=== PATIENT | female | born 1955 | race American Indian/Alaskan Native ===

== ENCOUNTER 2018-11-02 16:26 | Inpatient (IN) | payer MEDICARE ==
[2018-11-02 17:04] LABS: BASO # 0.1 K/uL (0.0-0.2); BASO % 1.4 % (0.0-2.0); EOS # 0.1 K/uL (0.0-0.7); EOS % 1.4 % (0.0-4.0); HEMOGLOBIN 11.4 g/dL (11.0-16.0); LYMPH % 23.4 % (20.0-40.0); MEAN CELL VOLUME 80.1 fL (81.0-99.0); MEAN CORPUSCULAR HEMOGLOBIN 25.5 pg (27.0-31.0); MEAN CORPUSCULAR HGB CONC 31.9 g/dL (33.0-37.0); MEAN PLATELET VOLUME 7.3 fL (7.2-11.7); MONO # 0.5 K/uL (0.0-0.8); MONO % 5.8 % (0.0-10.0); NEUT # 5.7 K/uL (1.8-7.0); NRBC % 0.1 % (0.0-2.0); RBC 4.48 Mil/uL (3.80-5.20); RED CELL DISTRIBUTION WIDTH 15.8 % (11.5-14.5); WHITE BLOOD COUNT 8.4 K/uL (4.8-10.8)
[2018-11-02 17:27] LABS: ALB/GLOB RATIO 1.5 (1.0-2.1); ALBUMIN 4.4 g/dL (3.5-5.0); ALT/SGPT 18 U/L (9-52); AST/SGOT 19 U/L (14-36); BLOOD UREA NITROGEN 11 mg/dL (7-17); CALCIUM 9.3 mg/dl (8.6-10.4); GFR NON-AFRICAN AMERICAN > 60
--- NOTE | 2018-11-02 17:28 | CT ---
Date of service: 11/02/2018 PROCEDURE: CT HEAD WITHOUT CONTRAST. HISTORY: dizziness COMPARISON: None available. TECHNIQUE: Axial computed tomography images were obtained through the head/brain without intravenous contrast. Radiation dose: Total exam DLP = 1132.61 mGy-cm. This CT exam was performed using one or more of the following dose reduction techniques: Automated exposure control, adjustment of the mA and/or kV according to patient size, and/or use of iterative reconstruction technique. FINDINGS: HEMORRHAGE: No intracranial hemorrhage. BRAIN: No mass effect or edema. Mild age related cerebral atrophy is appreciated without focal area of decreased density. No cortical effacement is seen. Posterior fossa is unremarkable. VENTRICLES: Unremarkable. No hydrocephalus. CALVARIUM: Unremarkable. PARANASAL SINUSES: Mild mucosal changes are seen in the ethmoid air cells without fluid level. MASTOID AIR CELLS: Unremarkable as visualized. No inflammatory changes. OTHER FINDINGS: No tonsillar ectopia is seen. No sellar masses are noted. Retro-orbital regions are unremarkable. Mild atherosclerotic changes of the intracranial internal carotid arteries are incidentally seen. IMPRESSION: No evidence of recent infarct or intracranial hemorrhage.
[2018-11-02 17:38] LABS: B-TYPE NATRIURETIC PEPTIDE 47.6 pg/mL (0-900)
--- NOTE | 2018-11-02 17:39 | C.PDOC ---
History Of Present Illness 63 y/o female brought in by ambulance with complaints of dizziness for the past 3 days. Also complains of left-sided chest pain, associated with SOB. Has hx of vertigo and cardiac disease. Recently moved here from [place]. Otherwise she denies any visual loss, severe headache, nausea, vomiting, diaphoresis, productive cough, fever, or chills. Time Seen by Provider: 11/02/18 16:41 Chief Complaint (Nursing): Chest Pain History Per: Patient History/Exam Limitations: no limitations Onset/Duration Of Symptoms: Days Current Symptoms Are (Timing): Still Present Past Medical History Reviewed: Historical Data, Nursing Documentation, Vital Signs Vital Signs: Last Vital Signs Temp 97.5 F L 11/02/18 16:34 Pulse 70 11/02/18 16:34 Resp 20 11/02/18 16:34 BP 175/83 H 11/02/18 16:34 Pulse Ox 100 11/02/18 16:34 - Medical History PMH: CHF, HTN Surgical History: Coronary Stent, Pacemaker Family History: States: No Known Family Hx - Social History Hx Alcohol Use: No Hx Substance Use: No - Immunization History Hx Tetanus Toxoid Vaccination: No Hx Influenza Vaccination: Yes (08/2018) Hx Pneumococcal Vaccination: No Review Of Systems Except As Marked, All Systems Reviewed And Found Negative. Constitutional: Negative for: Fever, Chills, Sweats Eyes: Negative for: Vision Change Cardiovascular: Positive for: Chest Pain Respiratory: Positive for: Shortness of Breath. Negative for: Cough, Sputum Gastrointestinal: Negative for: Nausea, Vomiting Neurological: Positive for: Dizziness. Negative for: Weakness, Numbness, Headache Physical Exam - Physical Exam Appears: Non-toxic, No Acute Distress Skin: Normal Color, Warm, Dry Head: Atraumatic, Normacephalic Eye(s): bilateral: Normal Inspection, PERRL, EOMI Ear(s): Bilateral: Normal (no TM erythema, (-) mastoid tenderness) Oral Mucosa: Moist Neck: Normal ROM Chest: Symmetrical, No Tenderness, No Ecchymosis Cardiovascular: Rhythm Regular, No Murmur Respiratory: Normal Breath Sounds, No Rales, No Rhonchi, No Wheezing Gastrointestinal/Abdominal: Soft, No Tenderness, No Distention Extremity: Bilateral: Atraumatic, Normal Color And Temperature Pulses: Left Radial: Normal, Right Radial: Normal Neurological/Psych: Oriented x3, Normal Speech ED Course And Treatment - Laboratory Results Result Diagrams: 11/02/18 17:00 11/02/18 17:00 ECG: Interpreted By Me, Viewed By Me ECG Rhythm: Sinus Rhythm Interpretation Of ECG: left axis deviation, 1st degree AV block, nonspecific T wave changes Rate From EC (bpm) O2 Sat by Pulse Oximetry: 100 (RA) Pulse Ox Interpretation: Normal - CT Scan/US CT Head Other Rad Studies (CT/US): Read By Radiologist, Radiology Report Reviewed CT/US Interpretation: Accession No. : [id number]. Patient Name / ID : ALLEY LLAMAS / [id number]. Exam Date : 11/02/2018 17:13:30 ( Approved ). Study Comment : Sex / Age : F / 63Y. Creator : Nasima Leyva MD. Dictator : Nasima Leyva MD. Principal Secretary : Desk Pens Assembler : Nasima Leyva MD. Approver2 : Report Date : 11/02/2018 17:24:49. My Comment : . Date of service: 11/02/2018. PROCEDURE: CT HEAD WITHOUT CONTRAST. HISTORY: dizziness. COMPARISON: None available. TECHNIQUE: Axial computed tomography images were obtained through the head/brain without intravenous contrast. Radiation dose: Total exam DLP = 1132.61 mGy-cm. This CT exam was performed using one or more of the following dose reduction techniques: Automated exposure control, adjustment of the mA and/or kV according to patient size, and/or use of iterative reconstruction technique. FINDINGS: HEMORRHAGE: No intracranial hemorrhage. BRAIN: No mass effect or edema. Mild age related cerebral atrophy is appreciated without focal area of decreased density. No cortical effacement is seen. Posterior fossa is unremarkable. VENTRICLES: Unremarkable. No hydrocephalus. CALVARIUM: Unremarkable. PARANASAL SINUSES: Mild mucosal changes are seen in the ethmoid air cells without fluid level. MASTOID AIR CELLS: Unremarkable as visualized. No inflammatory changes. OTHER FINDINGS: No tonsillar ectopia is seen. No sellar masses are noted. Retro-orbital regions are unremarkable. Mild atherosclerotic changes of the intracranial internal carotid arteries are incidentally seen. IMPRESSION: No evidence of recent infarct or intracranial hemorrhage. Medical Decision Making Medical Decision Making: Impression: Chest Pain, Dizziness, SOB Plan: --EKG --Blood work with cardiac enzymes --Chest x-ray --CT Head --Meclizine 25 mg PO --Sudafed 30 mg PO --Reassess case discussed with Dr. Starr and will admit to telemetry. Disposition Discussed With .: Joseph Starr Doctor Will See Patient In The: Hospital Counseled Patient/Family Regarding: Studies Performed, Diagnosis - Disposition Disposition: HOSPITALIZED Disposition Time: 18:11 Condition: FAIR - Clinical Impression Clinical Impression: Chest pain, Dizziness - Scribe Statement The provider has reviewed the documentation as recorded by the Diya Cannon Provider Attestation: All medical record entries made by the Diya were at my direction and personally dictated by me. I have reviewed the chart and agree that the record accurately reflects my personal performance of the history, physical exam, medical decision making, and the department course for this patient. I have also personally directed, reviewed, and agree with the discharge instructions and disposition.
[2018-11-02 17:54] LABS: URINE BILIRUBIN NEGATIVE (NEGATIVE); URINE BLOOD NEGATIVE (NEGATIVE); URINE CLARITY Clear (Clear); URINE COLOR Yellow (YELLOW); URINE GLUCOSE (UA) NORMAL (Normal); URINE LEUKOCYTE ESTERASE NEG Leu/uL (Negative); URINE PROTEIN NEGATIVE (NEGATIVE)
[2018-11-02] MEDS ORDERED: Aspirin 325 mg EC Tablets PO STA (18:10)
[2018-11-02] MEDS ORDERED: Aspirin 325 mg EC Tablets PO ONE (18:15)
--- NOTE | 2018-11-02 21:05 | RAD ---
Date of service: 11/02/2018 PROCEDURE: CHEST RADIOGRAPH, 1 VIEW HISTORY: SOB COMPARISON: None available. FINDINGS: LUNGS: Minor crowding is seen at the lung bases. PLEURA: No pneumothorax or pleural fluid seen. CARDIOVASCULAR: Heart is enlarged. Left pacemaker is identified. No significant calcification of the aorta is noted. OSSEOUS STRUCTURES: No significant abnormalities. VISUALIZED UPPER ABDOMEN: Normal. OTHER FINDINGS: None. IMPRESSION: No focal infiltrate. Mild cardiomegaly.
[2018-11-03] MEDS: Metoprolol Succinate 50 mg XL Tab PO SCH (09:11)
[2018-11-03] MEDS: Enoxaparin 40 mg Syringe SC SCH (09:12)
--- NOTE | 2018-11-03 13:12 | VASCLAB ---
Date of service: 11/03/2018 PROCEDURE: Carotid Duplex Exam-Limited [id number] HISTORY: Dizziness COMPARISON: None available. TECHNIQUE: Grayscale and duplex Doppler evaluation of the cervical carotid and vertebral arteries were performed. The common carotid, carotid bifurcations and cervical Internal Carotid Artery (ICA) and proximal External Carotid Artery (ECA) were evaluated. The vertebral arteries were evaluated for gross patency and flow direction. Report prepared by YANNI Lockett FINDINGS: RIGHT CAROTID ARTERIES: 1. Common Carotid Artery: No significant focal plaque formation of the right common carotid artery. Maximum Peak Systolic velocity: 72 cm/sec: End-diastolic velocity 12 cm/sec. 2. Carotid Bifurcation: plaque formation. Maximum Peak Systolic velocity: 33 cm/sec: End-diastolic velocity 12 cm/sec. 3. Internal Carotid Artery: Plaque description: 3.1. Proximal Segment: Peak systolic velocity 32 cm/sec: End-diastolic velocity 12 cm/sec - % stenosis 0-15% 3.2. Middle Segment: Peak systolic velocity 39 cm/sec: End-diastolic velocity 15 cm/sec - % stenosis 0-15% 3.3. Distal Segment: Peak systolic velocity 69 cm/sec: End-diastolic velocity 25 cm/sec - % stenosis 0-15% 4. External Carotid Artery: No significant focal plaque formation. Peak systolic velocity 68 cm/sec 5. ICA/CCA Ratio: 1.3 LEFT CAROTID ARTERIES: NOT EXAMINED. VERTEBRAL ARTERIES: 1. Right Vertebral Artery: The right vertebral artery flow direction is antegrade. 2. Left Vertebral Artery: OTHER FINDINGS: None As per patient's request the left side was not examined. Irish Arzate was made aware at 10:04 a.m. IMPRESSION: RIGHT: Duplex scan does not suggest hemodynamically significant stenosis of the right extracranial carotid arteries. LEFT: N/A
--- NOTE | 2018-11-03 20:04 | CARD ---
APPROVED REPORT Date of service: 11/02/2018 EKG Measurement Heart [id number] VT 210P48 [id number] <Conclusion> Sinus rhythm with 1st degree AV block Left axis deviation Abnormal ECG
--- NOTE | 2018-11-03 22:19 | CP.PCM.CON ---
History of Present Illness - History of Present Illness History of Present Illness: 63 y/o female brought in by ambulance with complaints of dizziness for the past 3 days. Also complains of left-sided chest pain, associated with SOB. Has hx of vertigo and cardiac disease. Recently moved here from [place]. Otherwise she denies any visual loss, severe headache, nausea, vomiting, diaphoresis, productive cough, fever, or chills. Chief Complaint (Nursing): Chest Pain History Per: Patient History/Exam Limitations: no limitations Onset/Duration Of Symptoms: Days Current Symptoms Are (Timing): Still Present Past Medical History Reviewed: Historical Data, Nursing Documentation, Vital Signs Vital Signs: Last Vital Signs Temp 97.5 F L 11/02/18 16:34 Pulse 70 11/02/18 16:34 Resp 20 11/02/18 16:34 BP 175/83 H 11/02/18 16:34 Pulse Ox 100 11/02/18 16:34 - Medical History PMH: CHF, HTN Surgical History: Coronary Stent, Pacemaker Family History: States: No Known Family Hx - Social History Hx Alcohol Use: No Hx Substance Use: No - Immunization History Hx Tetanus Toxoid Vaccination: No Hx Influenza Vaccination: Yes (08/2018) Hx Pneumococcal Vaccination: No Review Of Systems Except As Marked, All Systems Reviewed And Found Negative. Constitutional: Negative for: Fever, Chills, Sweats Eyes: Negative for: Vision Change Cardiovascular: Positive for: Chest Pain Respiratory: Positive for: Shortness of Breath. Negative for: Cough, Sputum Gastrointestinal: Negative for: Nausea, Vomiting Neurological: Positive for: Dizziness. Negative for: Weakness, Numbness, Headache Physical Exam - Physical Exam Appears: Non-toxic, No Acute Distress Skin: Normal Color, Warm, Dry Head: Atraumatic, Normacephalic Eye(s): bilateral: Normal Inspection, PERRL, EOMI Ear(s): Bilateral: Normal (no TM erythema, (-) mastoid tenderness) Oral Mucosa: Moist Neck: Normal ROM Chest: Symmetrical, No Tenderness, No Ecchymosis Cardiovascular: Rhythm Regular, No Murmur Respiratory: Normal Breath Sounds, No Rales, No Rhonchi, No Wheezing Gastrointestinal/Abdominal: Soft, No Tenderness, No Distention Extremity: Bilateral: Atraumatic, Normal Color And Temperature Pulses: Left Radial: Normal, Right Radial: Normal Neurological/Psych: Oriented x3, Normal Speech Past Patient History - Past Medical History & Family History Past Medical History?: Yes - Past Social History Smoking Status: Never Smoked - CARDIAC Hx Congestive Heart Failure: Yes Hx Hypertension: Yes Hx Pacemaker: Yes - MUSCULOSKELETAL/RHEUMATOLOGICAL Hx Falls: No - PSYCHIATRIC Hx Substance Use: No - SURGICAL HISTORY Hx Coronary Stent: Yes - ANESTHESIA Hx Anesthesia: Yes Hx Anesthesia Reactions: No Meds Allergies/Adverse Reactions: Allergies Allergy/AdvReac Type Severity Reaction Status Date / Time No Known Allergies Allergy Verified 11/02/18 16:39 - Medications Medications: Current Medications Acetaminophen (Tylenol 325mg Tab) 650 mg PO Q6 PRN PRN Reason: Headache Last Admin: 11/03/18 19:07 Dose: 650 mg Aspirin (Ecotrin) 81 mg PO DAILY [facility] Last Admin: 11/03/18 09:11 Dose: 81 mg Enoxaparin Sodium (Lovenox) 40 mg SC DAILY [facility] Last Admin: 11/03/18 09:12 Dose: 40 mg Gabapentin (Neurontin) 100 mg PO TID [facility] Last Admin: 11/03/18 17:01 Dose: 100 mg Lisinopril (Zestril) 5 mg PO DAILY [facility] Last Admin: 11/03/18 09:11 Dose: 5 mg Meclizine HCl (Antivert) 25 mg PO Q8 PRN PRN Reason: Dizziness Last Admin: 11/03/18 17:01 Dose: 25 mg Metoprolol Succinate (Toprol Xl) 50 mg PO DAILY [facility] Last Admin: 11/03/18 09:11 Dose: 50 mg Rosuvastatin Calcium (Crestor) 10 mg PO HS [facility] Last Admin: 11/03/18 21:46 Dose: 10 mg Results - Vital Signs Recent Vital Signs: Last Vital Signs Temp 97.8 F 11/03/18 15:43 Pulse 60 11/03/18 20:50 Resp 20 11/03/18 15:43 BP 137/75 11/03/18 15:43 Pulse Ox 98 11/03/18 16:31 - Labs Result Diagrams: 11/02/18 17:00 11/02/18 17:00 Labs: Laboratory Results - last 24 hr 11/03/18 11/03/18 11/03/18 00:32 06:43 14:28 ESR 17 Troponin I < 0.0120 < 0.0120 C-Reactive Protein 11/03/18 14:28 ESR Troponin I C-Reactive Protein 13.20 H Assessment & Plan - Assessment and Plan (Free Text) Assessment: 63 F with hx of CAD s/p Coronary stents and PPM Will check ECHO and stress test in am
--- NOTE | 2018-11-03 23:51 | CP.PCM.HP ---
Past Patient History - Past Medical History & Family History Past Medical History?: Yes - Past Social History Smoking Status: Never Smoked - CARDIAC Hx Congestive Heart Failure: Yes Hx Hypertension: Yes Hx Pacemaker: Yes - MUSCULOSKELETAL/RHEUMATOLOGICAL Hx Falls: No - PSYCHIATRIC Hx Substance Use: No - SURGICAL HISTORY Hx Coronary Stent: Yes - ANESTHESIA Hx Anesthesia: Yes Hx Anesthesia Reactions: No Meds Allergies/Adverse Reactions: Allergies Allergy/AdvReac Type Severity Reaction Status Date / Time No Known Allergies Allergy Verified 11/02/18 16:39 Results - Vital Signs Recent Vital Signs: Last Vital Signs Temp 97.8 F 11/03/18 15:43 Pulse 60 11/03/18 20:50 Resp 20 11/03/18 15:43 BP 137/75 11/03/18 15:43 Pulse Ox 98 11/03/18 16:31 - Labs Result Diagrams: 11/02/18 17:00 11/02/18 17:00 Labs: Laboratory Results - last 24 hr 11/03/18 11/03/18 11/03/18 00:32 06:43 14:28 ESR 17 Troponin I < 0.0120 < 0.0120 C-Reactive Protein 11/03/18 14:28 ESR Troponin I C-Reactive Protein 13.20 H
--- NOTE | 2018-11-04 07:11 | CP.PCM.CON ---
History of Present Illness - History of Present Illness History of Present Illness: CONSULTATION DICTATED NECK PAIN WITH NUMBNESS OF HER LEFT FACE CERVICAL SPINAL PATHOLOGY - HNP COMPLETE CAROTID STUDY AGREE WITH CARDIAC WORK UP Past Patient History - Past Medical History & Family History Past Medical History?: Yes - Past Social History Smoking Status: Never Smoked - CARDIAC Hx Congestive Heart Failure: Yes Hx Hypertension: Yes Hx Pacemaker: Yes - MUSCULOSKELETAL/RHEUMATOLOGICAL Hx Falls: No - PSYCHIATRIC Hx Substance Use: No - SURGICAL HISTORY Hx Coronary Stent: Yes - ANESTHESIA Hx Anesthesia: Yes Hx Anesthesia Reactions: No Meds Allergies/Adverse Reactions: Allergies Allergy/AdvReac Type Severity Reaction Status Date / Time No Known Allergies Allergy Verified 11/02/18 16:39 - Medications Medications: Current Medications Acetaminophen (Tylenol 325mg Tab) 650 mg PO Q6 PRN PRN Reason: Headache Last Admin: 11/03/18 19:07 Dose: 650 mg Aspirin (Ecotrin) 81 mg PO DAILY [facility] Last Admin: 11/03/18 09:11 Dose: 81 mg Enoxaparin Sodium (Lovenox) 40 mg SC DAILY [facility] Last Admin: 11/03/18 09:12 Dose: 40 mg Gabapentin (Neurontin) 100 mg PO TID [facility] Last Admin: 11/03/18 17:01 Dose: 100 mg Lisinopril (Zestril) 5 mg PO DAILY [facility] Last Admin: 11/03/18 09:11 Dose: 5 mg Meclizine HCl (Antivert) 25 mg PO Q8 PRN PRN Reason: Dizziness Last Admin: 11/03/18 17:01 Dose: 25 mg Metoprolol Succinate (Toprol Xl) 50 mg PO DAILY [facility] Last Admin: 11/03/18 09:11 Dose: 50 mg Rosuvastatin Calcium (Crestor) 10 mg PO HS [facility] Last Admin: 11/03/18 21:46 Dose: 10 mg Results - Vital Signs Recent Vital Signs: Last Vital Signs Temp 97.5 F L 11/04/18 00:00 Pulse 60 11/04/18 01:17 Resp 20 11/04/18 00:00 BP 140/85 11/04/18 01:17 Pulse Ox 97 11/04/18 00:00 - Labs Result Diagrams: 11/02/18 17:00 11/02/18 17:00 Labs: Laboratory Results - last 24 hr 11/03/18 11/03/18 11/03/18 06:43 14:28 14:28 ESR 17 Troponin I < 0.0120 C-Reactive Protein 13.20 H
[2018-11-04 08:33] LABS: FREE T4 0.87 ng/dL (0.78-2.19)
--- NOTE | 2018-11-04 12:30 | CARD ---
APPROVED REPORT Date of service: 11/03/2018 EKG Measurement Heart [id number] NM 244P61 [id number] <Conclusion> Atrial-paced rhythm with prolonged AV conduction Left anterior fascicular block Abnormal ECG
--- NOTE | 2018-11-04 12:31 | CARD ---
APPROVED REPORT Date of service: 11/03/2018 EKG Measurement Heart [id number] OR 240P68 [id number] <Conclusion> Atrial-paced rhythm with prolonged AV conduction Pulmonary disease pattern Left anterior fascicular block ST elevation, consider lateral injury or acute infarct ACUTE SD / STEMI Abnormal ECG
--- NOTE | 2018-11-04 12:32 | CARD ---
APPROVED REPORT Date of service: 11/03/2018 EKG Measurement Heart [id number] [place] 216P40 [id number] <Conclusion> Atrial-paced rhythm with prolonged AV conduction Pulmonary disease pattern Left anterior fascicular block Abnormal ECG
[2018-11-04] MEDS: Metoprolol Succinate 50 mg XL Tab PO SCH (12:48)
[2018-11-04] MEDS: Enoxaparin 40 mg Syringe SC SCH (12:48)
--- NOTE | 2018-11-04 12:50 | CON ---
DATE: 11/04/2018 TIME OF EVALUATION: 6:55 a.m. LOCATION: Room #563, bed A. ATTENDING PHYSICIAN: Joseph Starr MD NEUROLOGICAL PROBLEM: Dizziness and headache. CHIEF COMPLAINT: The patient was brought in to [facility] with history of dizziness for the last three days, which was more intense than her previous problem. From neurological point of view, I was called in to evaluate her for further management. HISTORY OF PRESENT ILLNESS: Meryl Elizabeth is a 63-year-old right-handed female who has just recently moved to [place] from [place] with the health history of cardiac arrest status post pacemaker placement in 2014 with preceding stroke and had a followup TIAs in the past, being followed by neurologist in [place]. At present, she is complaining of recurrent dizziness which is more intense than before for the last three days, however, the dizziness has all gone at this time, but she has some pain in the neck region on her left side which traveled into her left arm and radiating up to her face with facial numbness. These symptoms are not associating with visual or bulbar dysfunction. At home she used to walk with a cane and at times with a walker because of her previous stroke. PAST MEDICAL HISTORY Coronary stent and pacemaker placed in 2015, history of hypertension and CHF. No history of smoking or alcohol use. ALLERGIES: NONE. REVIEW OF SYSTEMS: A 12-point system being reviewed. From neuro, neck pain and dizziness. MEDICATIONS: Antibiotic, Crestor, Ecotrin, Neurontin, Toprol, Tylenol and lisinopril. PHYSICAL EXAMINATION: VITAL SIGNS: Blood pressure 104/85, mean artery pressure of 103, respiratory rate 18, temperature 97.5 with a pulse rate 60, normal sinus. NECK: Supple. No carotid bruits. HEART: Sounds regular. CHEST: Fair air entry. EXTREMITIES: No edema in legs. NEUROLOGIC: Mental status examination, she is awake, alert and oriented to person, place and time. Speech is clear. Naming, repetition, fluency, comprehension all within normal. Cranial nerve examination, visual field intact. Pupils reactive. Extraocular movement normal. No nystagmus. No facial sensory deficit. No facial asymmetry. Hearing is normal. Tongue is midline. Good gag. Motor examination, outstretched hand with eyes closed, no drift noted. Power is symmetric on either side. Deep tendon reflexes biceps, brachialis, triceps 1+ both knees are absent. Both ankles are absent. Plantars are downgoing. Sensory examination grossly intact; however, she had a decreased pinprick and pain on her right side to compare with her left side. Coordination, [id number] test is intact. Gait is deferred at this time. Examination of the spine, no tenderness. There is some discomfort over left cervical paraspinal muscle groups and trapezius. Some limited exam and range of movement is limited on her left side proximal muscle groups to compare with the right side. CONCLUSION: Ms. Meryl Elizabeth is, as per neurological examination, presenting with recurrent dizziness superimposed with some left cervical pain with facial numbness, all related to cervical pathology. The current examination does not show any central nervous system ischemic process. 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 DIAGNOSTIC DATA: CT of the head reviewed, no acute pathology, stroke process or bleed. EKG, sinus. LABORATORY DATA: Blood workup, WBC 8.4, hemoglobin 11.4, hematocrit 35.9, platelet 359. Sodium 139, potassium 3.6, chloride 111, bicarbonate 29, BUN 11, creatinine 0.6, GFR more than 60, ____ 17, CRP 13.20, BNP 47.6. Urine shows 2+ urobilinogen. RECOMMENDATION: 1. Continue stroke prophylaxis as she has been getting. 2. Gabapentin dose can be increased if her symptoms are persistent. 3. Complete the carotid Doppler studies which is missing on her left side, study was incomplete. 4. CAT scan of the cervical spine to rule out any spinal pathology that could explain her problem. 5. While she is in the hospital, the patient should get active physical therapy to improve her gait. The above has been discussed with her. I agree with cardiology workup. The patient will be followed closely with you. Juancarlos Burris MD
--- NOTE | 2018-11-04 13:14 | CT ---
Date of service: 11/04/2018 PROCEDURE: CT Cervical Spine without contrast HISTORY: cervical radiculopathy COMPARISON: None available. TECHNIQUE: Axial computed tomography images were obtained of the cervical spine without the use of intravenous contrast. Coronal and sagittal reformatted images were created and reviewed. Radiation dose: Total exam DLP = 485.97 mGy-cm. This CT exam was performed using one or more of the following dose reduction techniques: Automated exposure control, adjustment of the mA and/or kV according to patient size, and/or use of iterative reconstruction technique. FINDINGS: VERTEBRAE: There is normal alignment of the cervical vertebral bodies. There is normal cervical lordosis. There is no acute fracture or traumatic anterior listhesis. There is mild diffuse bone demineralization. DISCS/SPINAL CANAL/NEURAL FORAMINA: Evaluation of the discs and cord is limited on noncontrast CT examination there is multilevel degenerative disc disease due to combination of disc osteophyte complexes, uncovertebral joint hypertrophy and multilevel facet arthropathy, worse at C5-6 with moderate neural foraminal narrowing. No spinal canal stenosis. PARASPINAL SOFT TISSUES: No prevertebral soft tissue thickening. The paraspinous soft tissues are normal. OTHER FINDINGS: Mildly enlarged multinodular thyroid gland. IMPRESSION: No acute fracture or traumatic anterior listhesis. Limited examination for evaluation of discs and spinal cord. Allowing for this, mild multilevel degenerative disc disease, worse at C5-6 with moderate neural foraminal narrowing. No spinal canal stenosis.
--- NOTE | 2018-11-04 13:22 | VASCLAB ---
Date of service: 11/04/2018 PROCEDURE: Carotid Duplex Exam- Limited [id number] HISTORY: Dizziness COMPARISON: None available. TECHNIQUE: Grayscale and duplex Doppler evaluation of the cervical carotid and vertebral arteries were performed. The common carotid, carotid bifurcations and cervical Internal Carotid Artery (ICA) and proximal External Carotid Artery (ECA) were evaluated. The vertebral arteries were evaluated for gross patency and flow direction. Report prepared by YANNI Lockett FINDINGS: RIGHT CAROTID ARTERIES: NOT EXAMINED LEFT CAROTID ARTERIES: * Common Carotid Artery: No significant focal plaque formation of the left common carotid artery. Maximum Peak Systolic velocity: 84 cm/sec: End-diastolic velocity 16 cm/sec. * Carotid Bifurcation: plaque formation. Maximum Peak Systolic velocity: 31 cm/sec: End-diastolic velocity 10 cm/sec. * Internal Carotid Artery: Plaque description: o Proximal Segment: Peak systolic velocity 40 cm/sec: End-diastolic velocity 17 cm/sec - % stenosis 0-15% o Middle Segment: Peak systolic velocity 48 cm/sec: End-diastolic velocity 22 cm/sec - % stenosis 0-15% o Distal Segment: Peak systolic velocity 61 cm/sec: End-diastolic velocity 27 cm/sec - % stenosis 0-15% * External Carotid Artery: No significant focal plaque formation. Peak systolic velocity 50 cm/sec * ICA/CCA Ratio: 1.2 VERTEBRAL ARTERIES: * Left Vertebral Artery: The left vertebral artery flow direction is antegrade. OTHER FINDINGS: None. IMPRESSION: LEFT: Duplex scan does not suggest hemodynamically significant stenosis of the left extracranial carotid arteries.
--- NOTE | 2018-11-04 14:02 | CARD ---
APPROVED REPORT Date of service: 11/04/2018 Protocol: PHARMACOLOGICAL STRESS Test Type: LEXISCAN Test Indications: CHEST PAIN, DIZZINESS Medications: LIST SCAN Medical History: CHEST PAIN,DIZZINESS Target HR: 157 bpm Resting ECG: nsr Resting Heart Rate: 60 bpm Resting Blood Pressure: 154/96mmHg submaximum (85%): 133 bpm TEST SUMMARY [id number]/96.0. INFUSIONDOSE 100:300.00.01.060/.0. [id number]:260.00..[id number]/80.0. PROCEDURE Pharmacologic stress testing was performed using 0.4mg per 5ml of regadenoson given intravenously over 7-10 seconds. POST EXERCISE Reason for Termination: Protocol Completed Target HR: No Max HR: 60 bpm 56% of Maximum Predicted HR: 157 bpm Exercise duration: 00:30 min:sec, 0 Stage Exercise capacity: 1.0METs Max Blood Pressure: 160/80mmHg Blood Pressure response to exercise: normal resting BP - appropriate response Heart Rate response to exercise: appropriate Chest Pain: No, none Angina index: 0 Arrhythmia: No, none ST Change: No, none Deviation: 0 mm INTERPRETATION Stress EKG Conclusion: completed lexiscan protocol.tolerated procedure well.normal hr & bp response.no ekg changes.nuclear to follow. EXAM: Myocardial Perfusion REST/STRESS Imaging Protocol The imaging protocol used to acquire images was Rest Tc-99m/stress Tc-99m 1 day Rest Spect myocardial perfusion imaging was performed in supine position 45 minutes following the injection of 13.1 mCi of Tc-99 Myoview. Gated Stress Spect was performed 45 minutes after intravenous 33.0 mCi Tc-99 Myoview injection. The images were gated to evaluate regional wall motion and calculate ventricular ejection fraction.Images were reconstructed using backfilter projection method in short horizontal and verticle long axis. Spect slices were generated. RESTING DATA EDV85.34aiTN7.50L/min ESV28.00mlMyocardial Hwme810.00g Av. Heart Rate63.00bpm EF67.00% STRESS DATA EDV80.91wwRS4.60L/min ESV20.00mlMyocardial Hstk070.00g EF75.00% Regional WT score at stress:0.00 Regional WM score at stress:0.00 Summed WT score at stress:7.00 Av. Heart Rate60.00bpmSummed WM score at stress:0.00 LV Perf. Quant 17 Seg. SSS5.00 17 Seg. SRS3.00 17 Seg. SDS2.00 Stress Defect Extent (% LAD)3.10Rest Defect Extent (% LAD)0.00Rev. Defect Extent (% LAD)2.50 Stress Defect Extent (% LCX)48.80Rest Defect Extent (% LCX)36.30Rev. Defect Extent (% LCX)10.00 Stress Defect Extent (% RCA)0.00Rest Defect Extent (% RCA)0.00Rev. Defect Extent (% RCA)0.00 Stress Defect Extent (% YOLIE)15.40Rest Defect Extent (% YOLIE)7.40Rev. Defect Extent (% YOLIE)5.40 Other Information Quality:Good IMPRESSION Abnormal Myocardial Perfusion exercise stress study Left Ventricle LV Function:Left ventricle systolic function is normal. The Ejection Fraction is >55%. Conclusion 1. Moderate sized stress induced reversible perfusion defect suggestive of stress induced ischemia. Abnormal stress test.
--- NOTE | 2018-11-04 14:47 | CARD ---
APPROVED REPORT Date of service: 11/04/2018 EXAM: Two-dimensional and M-mode echocardiogram with Doppler and color Doppler. Other Information Quality : GoodRhythm : INDICATION Dizziness and Vertigo Chest Pain Congestive Heart Failure Surgery/Intervention Pacemaker: RISK FACTORS Hypertension 2D DIMENSIONS IVSd1.3 (0.7-1.1cm)LVDd4.6 (3.9-5.9cm) PWd1.2 (0.7-1.1cm)LA Dwwpkb47 (18-58mL) LVDs2.5 (2.5-4.0cm)FS (%) 44.8 % LVEF (%)76.2 (>50%)LVEF (Goldsmith's)69 % IVC0.00 cm M-Mode DIMENSIONS RVDd1.37 (2.1-3.2cm)Left Atrium (MM)4.25 (2.5-4.0cm) IVSd2.50 (0.7-1.1cm)Aortic Root2.96 (2.2-3.7cm) LVDd5.46 (4.0-5.6cm)Aortic Cusp Exc.1.96 (1.5-2.0cm) PWd1.05 (0.7-1.1cm)FS (%) 58 % LVDs2.29 (2.0-3.8cm)LVEF (%)75 (>50%) Mitral Valve MV E Vgkrafzr55.7cm/sMV A Tfkijhmp55.7cm/sE/A ratio0.5 AYNA730.70 cm/s TDI Lateral E' Peak V4.29cm/sMedial E' Peak V3.71cm/sE/Lateral E'12.3 E/Medial E'14.2 Tricuspid Valve TR Peak Sxxupkeu009us/sTR Peak Gr.72hxKbMCTJ92xoIv LEFT VENTRICLE The left ventricle is normal size. There is normal left ventricular wall thickness. The left ventricular function is normal. The left ventricular ejection fraction is within the normal range. No regional wall motion abnormalities noted. Transmitral Doppler flow pattern is Grade I-abnormal relaxation pattern. Left ventricular filling pressure is elevated No left ventricle thrombus noted on this study. There is no ventricular septal defect visualized. There is no left ventricular aneurysm. There is no mass noted in the left ventricle. RIGHT VENTRICLE The right ventricle is normal size. There is normal right ventricular wall thickness. The right ventricular systolic function is normal. ATRIA The left atrium is mildly dilated. Left atrial volume is mildly elevated The right atrium size is normal. The interatrial septum is intact with no evidence for an atrial septal defect. AORTIC VALVE The aortic valve is normal in structure and function. No aortic regurgitation is present. There is no aortic valvular stenosis. There is no aortic valvular vegetation. MITRAL VALVE The mitral valve is normal in structure and function. There is no evidence of mitral valve prolapse. There is no mitral valve stenosis. Mitral valve regurgitant volume is 27 mL, effective regurgitant orifice area is 0.1 cm consistent with mild mitral regurg TRICUSPID VALVE The tricuspid valve is normal in structure and function. There is mild tricuspid regurgitation. Right ventricular systolic pressure is estimated at 30-40 mmHg. There is no tricuspid valve prolapse or vegetation. There is no tricuspid valve stenosis. PULMONIC VALVE The pulmonary valve is normal in structure and function. There is no pulmonic valvular regurgitation. There is no pulmonic valvular stenosis. GREAT VESSELS The aortic root is normal in size. The ascending aorta is normal in size. The pulmonary artery is normal. The IVC is normal in size and collapses >50% with inspiration. PERICARDIAL EFFUSION The pericardium appears normal. There is no pleural effusion. <Conclusion> The left ventricular function is normal. The left ventricular ejection fraction is within the normal range. No regional wall motion abnormalities noted. Transmitral Doppler flow pattern is Grade I-abnormal relaxation pattern. Left ventricular filling pressure is elevated The left atrium is mildly dilated. Left atrial volume is mildly elevated Mitral valve regurgitant volume is 27 mL, effective regurgitant orifice area is 0.1 cm consistent with mild mitral regurg
[2018-11-04 15:54] VITALS: RESP 20
--- NOTE | 2018-11-04 22:11 | CP.PCM.PN ---
Subjective - Date & Time of Evaluation Date of Evaluation: 11/04/18 Time of Evaluation: 17:20 - Subjective Subjective: Patient with abnormal stress test For Cardiac cath tomorrow Review Of Systems Except As Marked, All Systems Reviewed And Found Negative. Constitutional: Negative for: Fever, Chills, Sweats Eyes: Negative for: Vision Change Cardiovascular: Positive for: Chest Pain Respiratory: Positive for: Shortness of Breath. Negative for: Cough, Sputum Gastrointestinal: Negative for: Nausea, Vomiting Neurological: Positive for: Dizziness. Negative for: Weakness, Numbness, Headache Physical Exam - Physical Exam Appears: Non-toxic, No Acute Distress Skin: Normal Color, Warm, Dry Head: Atraumatic, Normacephalic Eye(s): bilateral: Normal Inspection, PERRL, EOMI Ear(s): Bilateral: Normal (no TM erythema, (-) mastoid tenderness) Oral Mucosa: Moist Neck: Normal ROM Chest: Symmetrical, No Tenderness, No Ecchymosis Cardiovascular: Rhythm Regular, No Murmur Respiratory: Normal Breath Sounds, No Rales, No Rhonchi, No Wheezing Gastrointestinal/Abdominal: Soft, No Tenderness, No Distention Extremity: Bilateral: Atraumatic, Normal Color And Temperature Pulses: Left Radial: Normal, Right Radial: Normal Neurological/Psych: Oriented x3, Normal Speech Assessment & Plan - Assessment and Plan (Free Text) Assessment: 63 F with hx of CAD s/p Coronary stents and PPM Abnormal stress test Patient scheduled for cath tomorrow [employer] Jennifer at bedside Patient agreed for the procedure Objective - Vital Signs/Intake and Output Vital Signs (last 24 hours): Temp Pulse Resp BP Pulse Ox 97.9 F 62 20 112/76 97 11/04/18 15:53 11/04/18 19:43 11/04/18 15:53 11/04/18 15:53 11/04/18 16:10 Intake and Output: 11/04/18 11/05/18 18:59 06:59 Intake Total 250 Balance 250 - Medications Medications: Current Medications Acetaminophen (Tylenol 325mg Tab) 650 mg PO Q6 PRN PRN Reason: Headache Last Admin: 11/03/18 19:07 Dose: 650 mg Aspirin (Ecotrin) 81 mg PO DAILY [facility] Last Admin: 11/04/18 12:48 Dose: 81 mg Enoxaparin Sodium (Lovenox) 40 mg SC DAILY [facility] Last Admin: 11/04/18 12:48 Dose: 40 mg Gabapentin (Neurontin) 100 mg PO TID [facility] Last Admin: 11/04/18 17:00 Dose: 100 mg Lisinopril (Zestril) 5 mg PO DAILY [facility] Last Admin: 11/04/18 12:48 Dose: 5 mg Meclizine HCl (Antivert) 25 mg PO Q8 PRN PRN Reason: Dizziness Last Admin: 11/04/18 12:52 Dose: 25 mg Metoprolol Succinate (Toprol Xl) 50 mg PO DAILY [facility] Last Admin: 11/04/18 12:48 Dose: 50 mg Rosuvastatin Calcium (Crestor) 10 mg PO HS [facility] Last Admin: 11/04/18 21:05 Dose: 10 mg - Labs Labs: 11/02/18 17:00 11/02/18 17:00
--- NOTE | 2018-11-05 04:34 | PN ---
DATE: 11/04/2018 SUBJECTIVE: Cardiac enzymes x3 are normal. She still has on and off chest pain. She has been seen by Cardiology, and she is for cardiac catheterization in a.m. No fever. No chills. PHYSICAL EXAMINATION: VITAL SIGNS: Blood pressure 137/84, pulse 62, respiratory rate 18, and temperature 97. LUNGS: Clear. CARDIOVASCULAR SYSTEM: S1 and S2, regular. ABDOMEN: Soft. ASSESSMENT: 1. Chest pain, rule out coronary artery disease. The patient's myocardial scan is positive. 2. Hypertension. 3. Hyperlipidemia. PLAN: Cardiac catheterization in a.m. Joseph Starr MD
[2018-11-05] MEDS ORDERED: guaiFENesin DM 200 mg-20 mg/10 ml UD PO STA (05:00)
[2018-11-05 07:26] VITALS: BP 149/83; PULSE 60; TEMP 98.1; O2SAT 98
--- NOTE | 2018-11-05 08:55 | HP ---
CHIEF COMPLAINT: Chest pain. HISTORY OF PRESENT ILLNESS: This is a 63-year-old female with history of hypertension, hyperlipidemia, and she has history of heart block with permanent pacemaker placement. She claims to have coronary artery disease, and she also claims to have history of stroke in the past. She has learning disability with dyslexia. She is in her usual state of health. She is ambulatory and independent in activities of daily living; compliant with diet, medications, followup. Has been followed up by doctors in [place]. She recently relocated back to [place]. The patient's chest pain is left-sided. It is nonexertional, non-radiating, not associated with diaphoresis, dizziness. She claims to be compliant with her diet, medication, and followup. She denies any fever, chills, rigors. She denies any history of vertigo. She denies any abdominal pain, nausea, vomiting. She denies any polyuria, polydipsia, polyphagia. She denies any hematuria, pyuria. ALLERGIES: UNKNOWN ALLERGIES. CURRENT MEDICATIONS: Nitroglycerin, metoprolol, lisinopril, Lasix, gabapentin. SOCIAL HISTORY: Nonsmoker. Non-ETOH user. FAMILY HISTORY: Not obtainable. PHYSICAL EXAMINATION: GENERAL: Elderly female. At the movement, she is chest pain free and not in distress. VITAL SIGNS: Blood pressure 158/87, pulse 60, respiratory rate 20, temperature 97.6. SKIN: Warm. Good turgor. No bruises. No purpura. No petechia. No ecchymosis. HEENT: Atraumatic and normocephalic. Negative pallor. Negative jaundice. Extraocular movements are intact. NECK: Supple. No JVD. No lymph node. No thyromegaly. LUNGS: Bilaterally clear. No rales. No rhonchi. CHEST WALL: Bilateral symmetrical expansion. No deformity. There is a pacemaker in left infraclavicular fossa. BREASTS: No masses. No nipple discharge. CARDIOVASCULAR SYSTEM: PMI not localized. S1 and S2 regular. ABDOMEN: Soft, nontender. Bowel sounds are positive. RECTAL: Negative. EXTREMITIES: No clubbing, cyanosis, or edema. CENTRAL NERVOUS SYSTEM: Awake, alert, oriented x3. Cranial nerves II through XII are normal. Power 5/5 x4. Plantars are downgoing. ASSESSMENT: 1. Chest pain, rule out myocardial infarction. 2. Heart block, status post permanent pacemaker placement. 3. Hypertension. 4. Hyperlipidemia. PLAN: Admit. Detailed orders written. Seen and examined. Joseph Starr MD
[2018-11-05] MEDS: Enoxaparin 40 mg Syringe SC SCH (10:00)
[2018-11-05] MEDS: Metoprolol Succinate 50 mg XL Tab PO SCH (10:00)
--- NOTE | 2018-11-05 15:48 | CP.PCM.PN ---
Subjective - Date & Time of Evaluation Date of Evaluation: 11/05/18 Time of Evaluation: 15:48 - Subjective Subjective: alert and orientedx3, no sob or chest pains, no acute distress. Objective - Vital Signs/Intake and Output Vital Signs (last 24 hours): Temp Pulse Resp BP Pulse Ox 98.1 F 60 20 149/83 98 11/05/18 07:00 11/05/18 07:00 11/05/18 07:00 11/05/18 07:00 11/05/18 07:00 Intake and Output: 11/05/18 11/05/18 06:59 18:59 Intake Total 300 Balance 300 - Labs Labs: 11/02/18 17:00 11/02/18 17:00 Assessment and Plan - Assessment and Plan (Free Text) Assessment: Patient is seen and examined. Alert and orientedx3, denies any chest pain, no sob or distress. Patient wants to go home and see her own doctor for any further work up. Discussed with DR Starr, patient signed AMA, all the necessary prescriptions given to the patient. Advised to follow up with PMD in 1 week or go to the ER if any chest pains or distress noted.
--- NOTE | 2018-11-05 22:25 | CP.PCM.DIS ---
Provider - Provider Date of Admission: 11/04/18 16:50 Attending physician: Joseph Starr MD Consults: 11/03/18 09:57 Cardiology Consult Routine Comment: Consulting Provider: Oleg Solis Consulting Physician: Oleg Solis Reason for Consult: chest pain 11/03/18 13:25 Neurology Consult Routine Comment: Consulting Provider: Juancarlos Burris Consulting Physician: Juancarlos Burris Reason for Consult: Headache Hospital Course - Lab Results Lab Results: Most Recent Lab Values WBC 8.4 K/uL (4.8-10.8) 11/02/18 17:00 RBC 4.48 Mil/uL (3.80-5.20) 11/02/18 17:00 Hgb 11.4 g/dL (11.0-16.0) 11/02/18 17:00 Hct 35.9 % (34.0-47.0) 11/02/18 17:00 MCV 80.1 fL (81.0-99.0) L 11/02/18 17:00 MCH 25.5 pg (27.0-31.0) L 11/02/18 17:00 MCHC 31.9 g/dL (33.0-37.0) L 11/02/18 17:00 RDW 15.8 % (11.5-14.5) H 11/02/18 17:00 Plt Count 359 K/uL (130-400) 11/02/18 17:00 MPV 7.3 fL (7.2-11.7) 11/02/18 17:00 Neut % (Auto) 68.0 % (50.0-75.0) 11/02/18 17:00 Lymph % (Auto) 23.4 % (20.0-40.0) 11/02/18 17:00 [place] % (Auto) 5.8 % (0.0-10.0) 11/02/18 17:00 Eos % (Auto) 1.4 % (0.0-4.0) 11/02/18 17:00 Baso % (Auto) 1.4 % (0.0-2.0) 11/02/18 17:00 Neut # (Auto) 5.7 K/uL (1.8-7.0) 11/02/18 17:00 Lymph # (Auto) 2.0 K/uL (1.0-4.3) 11/02/18 17:00 Ector # (Auto) 0.5 K/uL (0.0-0.8) 11/02/18 17:00 Eos # (Auto) 0.1 K/uL (0.0-0.7) 11/02/18 17:00 Baso # (Auto) 0.1 K/uL (0.0-0.2) 11/02/18 17:00 ESR 17 mm/hr (0-20) 11/03/18 14:28 D-Dimer, Quantitative < 200 ng/mlDDU (0-243) 11/02/18 17:22 Sodium 139 mmol/L (132-148) 11/02/18 17:00 Potassium 3.6 mmol/L (3.6-5.2) 11/02/18 17:00 Chloride 101 mmol/L (98-107) 11/02/18 17:00 Carbon Dioxide 29 mmol/L (22-30) 11/02/18 17:00 Anion Gap 13 (10-20) 11/02/18 17:00 BUN 11 mg/dL (7-17) 11/02/18 17:00 Creatinine 0.6 mg/dL (0.7-1.2) L 11/02/18 17:00 Est GFR ( Amer) > 60 11/02/18 17:00 Est GFR (Non-Af Amer) > 60 11/02/18 17:00 Random Glucose 101 mg/dL (65-105) 11/02/18 17:00 Calcium 9.3 mg/dl (8.6-10.4) 11/02/18 17:00 Magnesium 1.9 mg/dL (1.6-2.3) 11/02/18 17:00 Total Bilirubin 0.4 mg/dL (0.2-1.3) 11/02/18 17:00 AST 19 U/L (14-36) 11/02/18 17:00 ALT 18 U/L (9-52) 11/02/18 17:00 Alkaline Phosphatase 105 U/L (38-126) 11/02/18 17:00 Troponin I < 0.0120 ng/mL (0.00-0.120) 11/03/18 06:43 C-Reactive Protein 13.20 mg/L (0.0-9.9) H 11/03/18 14:28 NT-Pro-B Natriuret Pep 47.6 pg/mL (0-900) 11/02/18 17:00 Total Protein 7.3 g/dL (6.3-8.3) 11/02/18 17:00 Albumin 4.4 g/dL (3.5-5.0) 11/02/18 17:00 Globulin 2.9 gm/dL (2.2-3.9) 11/02/18 17:00 Albumin/Globulin Ratio 1.5 (1.0-2.1) 11/02/18 17:00 Vitamin B12 413 pg/mL (239-931) 11/04/18 07:52 Free T4 0.87 ng/dL (0.78-2.19) 11/04/18 07:52 TSH 3rd Generation 1.17 mIU/L (0.46-4.68) 11/04/18 07:52 Urine Color Yellow (YELLOW) 11/02/18 17:40 Urine Clarity Clear (Clear) 11/02/18 17:40 Urine pH 7.0 (5.0-8.0) 11/02/18 17:40 Ur Specific [place] 1.008 (1.003-1.030) 11/02/18 17:40 Urine Protein Negative mg/dL (NEGATIVE) 11/02/18 17:40 Urine Glucose (UA) Normal mg/dL (Normal) 11/02/18 17:40 Urine Ketones Negative mg/dL (NEGATIVE) 11/02/18 17:40 Urine Blood Negative (NEGATIVE) 11/02/18 17:40 Urine Nitrate Negative (NEGATIVE) 11/02/18 17:40 Urine Bilirubin Negative (NEGATIVE) 11/02/18 17:40 Urine Urobilinogen 2.0 mg/dL (0.2-1.0) H 11/02/18 17:40 Ur Leukocyte Esterase Neg Kym/uL (Negative) 11/02/18 17:40 Urine WBC (Auto) < 1 /hpf (0-5) 11/02/18 17:40 Urine RBC (Auto) 1 /hpf (0-3) 11/02/18 17:40 ZENA Nuclear Membr Pat Negative (Negative) 12/19/18 07:52 Discharge Plan - Discharge Medications Prescriptions: Rosuvastatin Calcium [Crestor] 10 mg PO HS #30 tab Metoprolol Succinate XL [Toprol XL] 50 mg PO DAILY #30 tab Lisinopril [Zestril] 5 mg PO DAILY #30 tab - Follow Up Plan Condition: FAIR Disposition: AGAINST MEDICAL ADVICE Instructions: Heart Failure, Adult (DC), Chest Pain (DC) Referrals: Oleg Solis MD [Staff Provider] - Juancarlos Burris MD [Staff Provider] - Joseph Starr MD [Staff Provider] -
--- NOTE | 2018-11-06 21:55 | DS ---
DISCHARGE DIAGNOSES: 1. Chest pain, etiology pending. 2. Hypertension. 3. Hyperlipidemia. 4. History of heart block, pacemaker placement. HISTORY OF PRESENT ILLNESS AND HOSPITAL COURSE: This is a 63-year-old female with a history of heart block with permanent pacemaker placement. She recently moved from [place] where she had this pacemaker placed. The patient came in because of left-sided chest pain, dull, nonradiating, not associated with diaphoresis. MA was ruled out cardiac enzyme, and nuclear stress test was positive for ischemia. The patient was offered cardiac catheterization, initially she accepted, but later on she declined and she signed out against medical advice. She was stable upon discharge. PHYSICAL EXAMINATION: VITAL SIGNS: Blood pressure 149/83, pulse 60, respiratory rate 20, and temperature 98.1. LUNGS: Clear. CARDIOVASCULAR SYSTEM: S1 and S2 are regular. ABDOMEN: Soft. ASSESSMENT: Chest pain, etiology pending. PLAN: The patient signed out against medical advice. Joseph Starr MD
== END 2018-11-05 15:00 | disposition left against medical advice (07) | DRG 303 ==
LOC: C.ER 16:26 → C.9E 18:10 → C.5S 19:12 → OBSVTOIN 11-04 16:50
PROVIDERS: ADMIT Internal Medicine; ATTEND Internal Medicine
DX: I25.10 Atherosclerotic heart disease of native coronary artery without angina pectoris (principal); I11.0 Hypertensive heart disease with heart failure; R42 Dizziness and giddiness; I50.9 Heart failure, unspecified; E78.5 Hyperlipidemia, unspecified; R48.0 Dyslexia and alexia; F81.0 Specific reading disorder; Z53.21 Procedure and treatment not carried out due to patient leaving prior to being seen by health care provider; Z95.0 Presence of cardiac pacemaker; Z95.5 Presence of coronary angioplasty implant and graft; Z86.74 Personal history of sudden cardiac arrest; Z86.73 Personal history of transient ischemic attack (TIA), and cerebral infarction without residual deficits